=== PATIENT | female | born 1965 | race Caucasian/White ===

== ENCOUNTER 2024-10-25 12:51 | Outpatient (CLI) | payer BC, SELFPAY ==
--- OUTSIDE RECORDS SUMMARY | 2024-10-25 12:55 | XMS_ITS | Clinical Summary ---
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 2 today, then QD for days 2 - 5. 6 Tab 0 08/17/2013 Active Active Problems No known active problems Immunizations Immunization Administration Dates Next Due Tdap 06/02/2012 Surgical History Surgery Date Site/Laterality Comments LAPAROSCOPY ECTOPIC SURGERY RHINOPLASTY BREAST SURGERY Social History Tobacco Use Types Packs/Day Years Used Date Smoking Tobacco: Never Smokeless Tobacco: Never Alcohol Use Standard Drinks/Week Comments Yes 0 (1 standard drink = 0.6 oz pur e alcohol) Sexually Active Control Partners Comments Yes Male Comments No Sex and Gender Information Value Date Recorded Sex Assigned at Not on file Legal Sex Female 1:26 PM EDT Gender Identity Not on file Sexual Orientation Not on file Obstetrics History Last Filed Vital Signs Vital Sign Reading Time Taken Comments Blood Pressure 120/82 08/17/2013 7:17 AM EDT Pulse 66 05/07/2011 2:00 PM EST Temperature 36.6 C (97.9 F) 08/17/2013 7:17 AM EDT Respiratory Rate - - Oxygen Saturation - - Inhaled Oxygen Concentration - - Weight 66.2 kg (146 lb) 08/17/2013 7:17 AM EDT Height 182.9 cm (6') 08/17/2013 7:17 AM EDT Body Mass Index 19.8 08/17/2013 7:17 AM EDT Plan of Treatment Upcoming Encounters Date Type Department Care Team (Late st Contact Info) Description 11/01/2024 8:15 AM EDT Office Visit [facility] [address] [facility] [place] [id number] Ralph Cortes MD [address] [place] [address] 11/15/2024 2:30 PM EDT Office Visit [facility] [place] Tommie Benitez [address] [place] [address] Letitia Henderson MD [address] [place] [address] Health Maintenance Due Date Last Done Comments Hepatitis C Screening 09/02/1981 HPV/Pap Cotest 09/02/1993 Cologuard 09/02/2008 Colon Cancer Screening 09/02/2008 Colonoscopy 09/02/2008 FIT 09/02/2008 Sigmoidoscopy 09/02/2008 Virtual Colonography 09/02/2008 Cervical Cancer Screening 12/16/2012 Pap Smear 12/16/2012 12/16/2009, 03/18/2004 Pneumococcal Vaccine 50+ (1 of 1 - PCV) 09/02/2013 Zoster (1 of 2) 09/02/2013 Annual Wellness Exam 08/17/2014 08/17/2013 (Postponed) Breast Cancer Screening 08/18/2015 08/18/19 14 (Postponed) DTaP/TDaP/Td (2 - Td or Tdap) 06/02/2022 06/02/2012 COVID-19 Vaccine ( - 2023-2 5 season) 2024 Influenza Vaccine (Season Ended) 2025 Hepatitis B Vaccine Aged Out No longe r eligible based on patient's age to complete this topic Meningococcal B Vaccine Aged Out No l onger eligible based on patient's age to complete this topic Procedures Procedure Name Priority Date/Time Associated Diagnosis Comments HM PAP SMEAR Routine 03/18/2004 from Last 3 Months or Most Recently Relevant to Health Maintenance Results * HM PAP SMEAR (03/18/2004) us Historical Provider HEALTH MAINTENANCE Final Res ult from Last 3 Months or Most Recently Relevant to Health Maintenance Insurance [employer] PPO AN[employer] PPO
[2024-10-25 13:26] LABS: Basophils # 0.1 K/mm3 (0-0.2); Eosinophils # 0.1 Kmm3 (0.0-0.4); Eosinophils % 1.5 % (0.1-12.0); Hematocrit 40.6 % (37.0-47.0); Hemoglobin 13.1 g/dL (12.2-16.2); Immature Granulocytes # 0.03 10^3uL; Immature Granulocytes % 0.6 %; Lymphocytes % 20.9 % (10-50); Mean Corpuscular HGB Conc 32.3 g/dL (31.8-35.4); Mean Corpuscular Hemoglobin 28.4 pg (27.0-31.2); Mean Corpuscular Volume 87.9 fl (81-99); Mean Platelet Volume 9.4 fl (7.4-10.4); Monocytes # 0.5 K/mm3 (0.1-1.0); Monocytes % 10.4 % (1.7-9.3); Neutrophils # 3.1 K/mm3 (1.8-7.8); Neutrophils % 65.6 % (37.0-80.0); Nucleated Red Blood Cells # 0 10^3/uL; Nucleated Red Blood Cells % 0 %; Platelet Count 317 K/mm3 (142-424); Red Blood Count 4.62 M/mm3 (4.20-5.40); Red Cell Distribution Width 13.2 % (11.5-17.5); Red Cell Distribution Width-SD 42.4 fL; White Blood Count 4.8 K/mm3 (4.8-10.8)
[2024-10-25 13:53] LABS: Albumin Level 4.6 g/dl (3.5-5.0); Anion Gap 9.8 mEq/L (5-15); Carbon Dioxide 28 mmol/L (22.0-30.0); Chloride 105 mmol/L (98-107); Glucose 97 mg/dl (74-100); Potassium 3.8 mmoL/L (3.5-5.1); Sodium 139 mmol/L (136-145)
[2024-10-25 14:03] LABS: Alanine Aminotransferase 32 U/L (12-78); Albumin/Globulin Ratio 1.9 (1.1-1.8); Alkaline Phosphatase 111 U/L (38-126); Aspartate Amino Transferase 37 U/L (14-36); Bilirubin,Total 0.4 mg/dl (0.2-1.3); Blood Urea Nitrogen 15 mg/dl (7-17); Estimated Glomerular Filt Rate 73 ml/min (>60); GFR (African American) 88 ML/MIN (>60); Globulin 2.4 g/dL (1.3-3.2)
== END 2024-10-25 23:59 | disposition home or self-care (01) ==
LOC: LAB 12:54
PROVIDERS: Visit Provider Internal Medicine Medical Oncology
DX: C50.919 Malignant neoplasm of unspecified site of unspecified female breast (principal)
CPT/HCPCS: 36415; 80053; 85025

== ENCOUNTER 2025-03-31 12:14 | Outpatient (CLI) | payer BC, SELFPAY ==
[2025-03-31 12:35] LABS: Hematocrit 44.6 % (37.0-47.0); Hemoglobin 14.6 g/dL (12.2-16.2); Immature Granulocytes % 0.3 %; Mean Corpuscular HGB Conc 32.7 g/dL (31.8-35.4); Mean Corpuscular Hemoglobin 28.3 pg (27.0-31.2); Mean Corpuscular Volume 86.6 fl (81-99); Nucleated Red Blood Cells % 0 %; Platelet Count 311 K/mm3 (142-424); Red Blood Count 5.15 M/mm3 (4.20-5.40); Red Cell Distribution Width-SD 40.1 fL; White Blood Count 6.6 K/mm3 (4.8-10.8)
[2025-03-31 13:44] LABS: Alanine Aminotransferase 33 U/L (12-78); Albumin Level 5.1 g/dl (3.5-5.0); Albumin/Globulin Ratio 1.8 (1.1-1.8); Alkaline Phosphatase 135 U/L (38-126); Anion Gap 13.8 mEq/L (5-15); Aspartate Amino Transferase 35 U/L (14-36); Bilirubin,Total 0.5 mg/dl (0.2-1.3); Blood Urea Nitrogen 13 mg/dl (7-17); Calcium 10.9 mg/dl (8.4-10.2); Carbon Dioxide 29 mmol/L (22.0-30.0); Chloride 98 mmol/L (98-107); Creatinine,Serum 1.10 mg/dl (0.52-1.04); Estimated Glomerular Filt Rate 50 ml/min (>60); GFR (African American) 61 ML/MIN (>60); Globulin 2.8 g/dL (1.3-3.2); Glucose 96 mg/dl (74-100); Potassium 4.8 mmoL/L (3.5-5.1); Sodium 136 mmol/L (136-145); Total Protein,Serum 7.9 g/dl (6.3-8.2)
== END 2025-03-31 23:59 | disposition home or self-care (01) ==
LOC: LAB 12:16
PROVIDERS: Visit Provider Internal Medicine Medical Oncology
DX: C50.911 Malignant neoplasm of unspecified site of right female breast (principal)
CPT/HCPCS: 36415; 80053; 85025

== ENCOUNTER 2025-04-10 13:11 | Outpatient (CLI) | payer BC, SELFPAY ==
[2025-04-10 13:40] VITALS: BP 129/82; PULSE 66; RESP 18; O2SAT 97
[2025-04-10] MEDS: ZOLEDRONIC ACID 4 MG in 0.9 % SODIUM CHLORIDE 100 ML 420 MG IV (13:40)
[2025-04-10] MEDS: 0.9 % SODIUM CHLORIDE 50 ML 100 ML IV (13:40)
[2025-04-10 14:10] VITALS: BP 132/85; PULSE 70; RESP 18; O2SAT 97
== END 2025-04-10 23:59 | disposition home or self-care (01) ==
PROVIDERS: Visit Provider Internal Medicine Medical Oncology
DX: C50.911 Malignant neoplasm of unspecified site of right female breast (principal)
CPT/HCPCS: 96374; J3489